=== PATIENT | female | born 1985 | race Caucasian/White ===

== ENCOUNTER → 2022-12-20 10:50 | Outpatient (BNVA) | payer MEDICAID, SELFPAY | PROVIDERS: PCP Nurse Practitioner Family; Visit Provider Nurse Practitioner Family | DX: E78.5 Hyperlipidemia, unspecified (principal) | CPT/HCPCS: 80053; 80061; 84443 ==

== ENCOUNTER → 2023-05-20 13:40 | Outpatient (BNVA) | payer OTHER, SELFPAY | PROVIDERS: PCP Nurse Practitioner Family; Visit Provider Nurse Practitioner Family | DX: R05.9 Cough, unspecified (principal) | CPT/HCPCS: 87400 ==

== ENCOUNTER → 2023-07-22 11:10 | Outpatient (BNVA) | payer OTHER, SELFPAY | PROVIDERS: PCP Nurse Practitioner Family; Visit Provider Nurse Practitioner Family | DX: L03.115 Cellulitis of right lower limb (principal); T63.001D Toxic effect of unspecified snake venom, accidental (unintentional), subsequent encounter | CPT/HCPCS: 87070; 87075; 87205 ==

== ENCOUNTER → 2023-09-11 08:33 | Outpatient (BNVA) | payer OTHER, SELFPAY | PROVIDERS: PCP Nurse Practitioner Family; Visit Provider Nurse Practitioner Family | DX: R30.0 Dysuria (principal); T63.001D Toxic effect of unspecified snake venom, accidental (unintentional), subsequent encounter; N39.0 Urinary tract infection, site not specified | CPT/HCPCS: 81003; 87086 ==

== ENCOUNTER 2024-04-02 07:48 | Day surgery (SDC) | payer OTHER, SELFPAY ==
[2024-04-02] VITALS (13 sets, daily range): BP systolic 104–126; BP diastolic 60–82; PULSE 64–73; RESP 16–18; TEMP 36.6–36.9; O2SAT 96–100; BMI 32.3
--- NOTE | 2024-04-02 05:10 | W.PM.OPSFHP ---
Same Day Surgery H&P Indication for Procedure/HPI DATE OF PROCEDURE: April 02, 2024 CHIEF COMPLAINT/INDICATIONFOR SURGICAL PROCEDURE: desires permanent sterilization wants nexplanon removed PREOP DIAGNOSIS: desires permanent sterilization; wants nexplanon removal PLANNED PROCEDURE: Operation Date: 04/02/24 10:05 Proposed Procedures p Laparoscopic bilateral partial salpingectomy 96623,Z30.2(Bilateral) - Abner Melchor MD 38 y.o. A2 has nexplanon x two years desires permanent sterilization Medications/Allergies* Allergies/Adverse Reactions Allergy/AdvReac Type Severity Reaction Status Date / Time No Known Allergies Allergy Verified 04/01/24 10:19 Pertinent History/Comorbid Conditions* Medical History (Updated 03/22/24 @ 15:54 by Abner Melchor MD) MTHFR gene mutation Surgical History (Updated 12/20/22 @ 10:48 by ALEXX Aldridge) History of colposcopy around 2009 Family History (Updated 07/09/23 @ 14:32 by Mary Johnson) Diabetes Grandmother Heart disease Grandmother Brother Breast cancer Father Hypertension Grandmother Sister Thyroid disease Sister Social History Smoking and tobacco/nicotine status: never used tobacco/nicotine Pertinent Exam Findings alert, oriented x 3, clear to auscultation bilaterally and regular rate & rhythm Recommendations Surgery/Procedure today Coding Level of Care Code Acute Code for Chg Fwd Time Spent (min) 20
--- NOTE | 2024-04-02 08:31 | W.PM.OPSUD ---
Surgery/Procedure H&P Update DATE OF PROCEDURE: April 02, 2024 DATE H&P PERFORMED: 04/02/24 H&P UPDATE INFORMATION: I have reviewed H&P completed within last 30 days, I have examined patient prior to procedure and No changes to prior documentation PREOP DIAGNOSIS: desires permanent sterilization; wants nexplanon removal PLANNED PROCEDURE: Operation Date: 04/02/24 09:00 Proposed Procedures p Laparoscopic bilateral partial salpingectomy 65727,Z30.2(Bilateral) - Abner Melchor MD
[2024-04-02 08:34] LABS: OR HCG Qualitative Urine Negative (Negative)
[2024-04-02] MEDS: sodium chloride 0.9% 1,000 ML 30 ML IV (09:02)
--- NOTE | 2024-04-02 09:13 | P.ANESASSM_ITS ---
Pre-Anesthetic Assessment Height/Weight: Height 5 ft 10 in Weight 225 lb Temp Pulse Resp BP Pulse Ox O2 Del Method 98.4 F 67 16 126/82 100 Room Air 04/02/24 08:28 04/02/24 08:28 04/02/24 08:28 04/02/24 08:28 04/02/24 08:28 04/02/24 08:40 Preop Diagnosis: desires permanent sterilization; wants nexplanon removal Operation Date: 04/02/24 09:00 Proposed Procedures p Laparoscopic bilateral partial salpingectomy 25383,Z30.2(Bilateral) - Abner Melchor MD Was Beta Viral taken within 24 hours: N/A Was Clonidine taken within 24 hours: N/A Last intake: Intake Last Liquid Date 04/01/24 Last Liquid Time 21:30 Last Solid Date 04/01/24 Last Solid Time 21:00 Social No alcohol and No tobacco Exam alert, oriented x 3, clear to auscultation bilaterally and regular rate & rhythm Airway Submandibular: within normal limits Cervical ROM: within normal limits Mallampati: Class I Dentition: full Anesthetic Plan ASA status: 2 Anesthesia: General Other: Patient states that she woke up during her wisdom teeth removal, denies any general anesthesia history NPO since yesterday Patient admits to snoring loudly, never been diagnosed with sleep apnea Denies any cardiac issues hCG negative METs greater than 4 Plan for GETA Medications/Allergies Home Medications Medication Instructions Recorded Confirmed Last Taken Type etonogestrel 68 mg subdermal 1 implant subdermal ONCE #1 ea 12/20/22 04/01/24 Unknown Rx implant (Nexplanon) oxycodone-acetaminophen 5 mg-325 1 tab PO BID PRN pain #14 tabs 04/02/24 Unkno wn Rx mg tablet (Percocet) Allergies Allergy/AdvReac Type Severity Reaction Status Date / Time No Known Allergies Allergy Verified 04/01/24 10:19 Current Medications Generic Name Dose Route Start Last Admin Trade Name Freq PRN Reason Stop Dose Admin Sodium Chloride 1,000 mls @ 30 mls/hr 04/02/24 08:15 04/02/24 09:02 Sodium Chloride 0.9% IV 04/03/24 08:14 30 mls/hr .Q24H MICHELLE Administration PFSH Anesthesia Medical History MTHFR gene mutation Surgical History History of colposcopy around 2009 Family History Father Breast cancer Grandmother Diabetes Heart disease Hypertension Brother Heart disease Sister Hypertension Thyroid disease Social History Smoking and tobacco/nicotine status: never used tobacco/nicotine Data Anesthesia Cardiac Studies: No Data to Display
--- NOTE | 2024-04-02 10:44 | ANE.PACU2 ---
Inpatient post-anesthesia follow up: Airway intact: Yes Vital signs: Temperature 98.0 F Pulse Rate 69 Respiratory Rate 18 Blood Pressure 125/70 Pulse Oximetry 99 Oxygen Delivery Me thod Room Air Oxygen Flow Rate Fraction of Inspir ed Oxygen Hydration adequate: Yes Nausea and vomiting: No Pain level: 1 Mental status: Baseline
--- NOTE | 2024-04-02 10:45 | P.OP_ITS ---
Operative Report Date of procedure: April 02, 2024 Pre-op diagnosis: desires permanent sterilization Nexplanon in place, patient wants removal Post-op diagnosis: same Post-op findings: normal uterus, tubes, and ovaries Nexplanon, complete and intact, removed Procedure done: laparoscopic bilateral partial salpingectomy removal of nexplanon Implants: none Specimens removed/disposition: bilateral partial fallopian tube segments Nexplanon, complete and intact, discarded Surgeon: Abner Melchor MD Anesthesia: General Estimated blood loss (mL): 5 Complications: none Findings: normal uterus, tubes, and ovaries Nexplanon, complete and intact, removed Condition: stable Disposition: PACU Brief History: 38 y.o. desires permanent sterilization and removal of nexplanon Procedure: Informed consent was obtained. The patient was taken to the OR and placed on the table. General endotracheal anesthesia was induced. The abdomen and perineum were then prepped and draped in the usual fashion. A 5 mm subumbilical skin incision was made. A 5 mm trocar with sheath was then inserted into the peritoneal cavity under direct visualization with the laparoscope. After confirming intraperitoneal position, pneumoperitoneum was achieved. Two separate 5 mm incisions were made in the right and left mid-quadrants. 5 mm trocars with sheaths were then inserted into the peritoneal cavity under direct visualization with the laparoscope. The right fallopian tube was then identified to its fimbrial end. Starting at t he fimbrial end, the mesosalpinx was then coagulated and cut using the Ligasure device. A 3-4 cm portion of the right fallopian tube was excised and removed via one of the ports. This was sent to pathology. There was no bleeding seen. Similarly, the left fallopian tube was identified to its fimbrial end. A 3-4 cm portion of the left fallopian tube was excised and removed, sent to pathology. There was no bleeding. All instruments were then removed from the peritoneal cavity after the pneumoperitoneum was allowed to escape. The skin incisions were closed using 3- O chromic in subcuticular fashion. Dermabond was applied. The medial aspect of the left upper arm was cleaned with betadine. A 1 cm superficial incision was made. The Nexplanon was removed complete and intact, then discarded. A single stitch of 3-O chromic was used to close the incision. Dermabond was applied. The patient was then awakened and taken the the PACU in good condition. Postop condition: stable EBL: 5 cc Complications: none Sponge, needles, and instruments counts correct x two
[2024-04-02] MEDS: oxyCODONE-APAP 5-325 mg Tablet 1 TAB PO (11:24)
== END 2024-04-02 12:45 | disposition home or self-care (01) ==
PROVIDERS: Student in an Organized Health Care Education/Training Program; PCP Nurse Practitioner Family; Visit Provider Obstetrics & Gynecology
PROC: (CPT 58661; principal; 2024-04-02 08:50)
DX: Z30.2 Encounter for sterilization (principal); Z30.432 Encounter for removal of intrauterine contraceptive device
CPT/HCPCS: 58301; 58661; 81025; 88302; J0131; J1100; J1200; J2250; J2405; J2704; J3010; J7030

== ENCOUNTER → 2024-07-23 10:05 | Outpatient (BNVA) | payer OTHER, SELFPAY | PROVIDERS: PCP Nurse Practitioner Family; Visit Provider Nurse Practitioner Women's Health | DX: Z01.419 Encounter for gynecological examination (general) (routine) without abnormal findings (principal) | CPT/HCPCS: 87624 ==